=== PATIENT | female | born 1985 | race Caucasian/White ===

== ENCOUNTER 2016-12-22 08:19 | Outpatient (CLI) | payer MEDICAID ==
[~2016-12-22] VITALS: Ht 160 cm; Wt 77.3 kg
[2016-12-22 08:23] VITALS: Ht 160 cm; Wt 77.3 kg
[2016-12-22] MEDS ORDERED: FOLI-49 PO (08:26)
[2016-12-22] MEDS ORDERED: PRENAT PO (08:26)
[2016-12-22] MEDS ORDERED: FERR325C PO (08:26)
--- NOTE | 2016-12-22 09:24 | RADRPT ---
PROCEDURE: OB ultrasound for biophysical profile CLINICAL INDICATION: Vaginal bleeding TECHNIQUE: Multiple sonographic images of the pelvis were obtained. Transabdominal views of the g ravid uterus are available for review. The images were reviewed on a PACS workstation. COMPARISON: None FINDINGS: breathing movement = 2/2 tone = 2/2 motion = 2/2 MINI = 2/2 MINI = 12.1 cm Single live intrauterine with cardiac activity of 136 bpm. position is cephal ic. The placenta is anterior. IMPRESSION: 1. Single live intrauterine gestation. 2. Biophysical profile = 8/8. 3. MINI = 12.1 cm. RPTAT: HH .Asha Melgoza MD, MD Date Time Electronically viewed and signed by .Asha Melgoza MD, on 12/22/2016 09:24 .G/
[2016-12-22 09:54] LABS: ADD UMIC YES; UR AMORPHOUS CRYSTAL FEW /HPF (NONE SEEN); UR ASCORBIC ACID NEGATIVE (NEGATIVE); UR BACTERIA FEW /HPF (NONE SEEN); UR BILIRUBIN (Dip) NEGATIVE (NEGATIVE); UR BLOOD (Dip) 2+ mg/dL (NEGATIVE); UR CLARITY CLOUDY (CLEAR); UR COLOR YELLOW (YELLOW); UR GLUCOSE (Dip) NEGATIVE (NEGATIVE); UR KETONES (Dip) NEGATIVE (NEGATIVE); UR LEUKOCYTE ESTERASE (Dip) NEGATIVE Leu/ul (NEGATIVE); UR MUCUS MODERATE /HPF (NONE SEEN); UR NITRITE (Dip) NEGATIVE (NEGATIVE); UR RBC 0 /HPF (0-5); UR SQUAMOUS EPITHELIAL CELL MODERATE /HPF (FEW); UR TOTAL PROTEIN (Dip) 1+ mg/dl (NEGATIVE); UR UROBILINOGEN (Dip) NEGATIVE (NEGATIVE)
--- NOTE | 2016-12-22 10:37 | PN ---
Triage Information Date/Time Reason for visit: Uterine contractions Weeks of Gestation 38+ /Para 2/1 Diabetes: none Hypertention: none Objective Heart Rate: 140's Contractions: None Results/Medications Results 24 hrs Laboratory Tests Test 12/22/16 09:15 Urine Color YELLOW Urine Clarity CLOUDY A Urine pH 6.0 Urine Specific [place] 1.020 Urine Ketones NEGATIVE Urine Nitrite NEGATIVE Urine Bilirubin NEGATIVE Urine Urobilinogen NEGATIVE Urine Leukocyte Esterase NEGATIVE Urine Microscopic RBC 0 Urine Microscopic WBC 6 H Urine Squamous Epithelial Cells MODERATE Urine Amorphous Crystals FEW A Urine Bacteria FEW A Urine Mucus MODERATE Urine Hemoglobin 2+ H Urine Glucose NEGATIVE Urine Total Protein 1+ H Disposition: Discharge Assessment/Plan BPP 11/14 Had no spotting earlier last night No VB +FM NO ctxs NO LOF CX L/C/P Patient is strongly recommended to return to the Hospital if she has any LOF any DOF any CTXs or baby is not moving like before TERRENCE MCCORMACK M.D. Dec 22, 2016 10:37
--- NOTE | 2016-12-22 15:13 | TRIAGE ---
OB Triage Datetime Report Generated by CPN: 12/22/2016 15:13 Datetime: 12/22/2016 08:50 Labor Evaluation Frequency: x2 contraction noted in last 30 minutes Monitor Mode: External Duration (sec)2399: 100-120 Quality: Moderate Pattern: Normal: <= 5 Contractions in 10 Minutes Resting Tone [place]: Relaxed Heart Rate FHR Baseline Rate: 150 Monitor Mode: External US FHR Baseline Changes: No Baseline Change Variability: Moderate 6-25 bpm Accelerations: 15X15 Decelerations: None Category: Category I Pain Assessment Pain Presence: None/Denies Datetime: 12/22/2016 08:22 Time of Arrival: 12/22/2016 08:10 EGA: 38.1 Arrived By: Wheelchair Arrived From: Emergency Dept Chief Complaint: Spotting Movement: Present Contractions: Denies/Absent Rupture of Membranes: Denies Vaginal Bleeding: Normal Show Vaginal Discharge: Present Recent Sexual Intercouse: Denies Abdominal Trauma: Not Applicable Patient Complaints: Other Time Provider Notified: 12/22/2016 09:00 Provider Notified: Jimmy Initial Plan: NST, Type _ Screen, BPP/MINI, VE Datetime: 12/22/2016 08:21 Stage of : OB Triage
--- NOTE | 2016-12-22 15:15 | TRIAGE ---
OB Triage Datetime Report Generated by CPN: 12/22/2016 15:14 Datetime: 12/22/2016 08:45 Assessment Type: Triage Level of Consciousness: Fully Conscious DTR's/Clonus: DTRs 2+; No Clonus Headache: Denies Blurred Vision: No Respiratory Effort: Unlabored; Regular Rhythm; Equal Expansion Breath Sounds, Left: Clear and Equal Breath Sounds, Right: Clear and Equal Nausea/Vomiting: Denies RUQ Epigastric Pain: Denies Lower Extremities Edema: None Degree: None Upper Extremities Edema: None Degree: None Facial Edema: None History of Falling: (0) No Secondary Diagnosis: (0) No Ambulatory Aid: (0) Bedrest/Nurse Assist IV Therapy: (0) No Gait: (0) Normal/Bedrest/Immobile Mental Status: (0) Oriented to Own Ability Fall Score: 0 Fall Risk Score Definition: No Risk: No action required Datetime: 12/22/2016 08:22 EGA: 38.1
== END 2016-12-22 10:50 | disposition home or self-care (01) ==
LOC: OBT 08:19 → L-D 08:19 → OBT 10:50
PROVIDERS: ATTEND Obstetrics & Gynecology
DX: O62.9 Abnormality of forces of labor, unspecified (principal); Z3A.38 38 weeks gestation of pregnancy
CPT/HCPCS: 36415; 76818; 81001; 86850; 86900; 86901; Z7500; G0463

== ENCOUNTER 2016-12-23 09:19 | Inpatient (IN) | payer MEDICAID ==
[~2016-12-23] VITALS: Ht 160 cm; Wt 77.6 kg
[~2016-12-23 09:19] MED LIST: FERR325C PO; FOLI-49 PO; PRENAT PO
[2016-12-23 09:37] VITALS: Ht 160 cm; Wt 77.6 kg
[2016-12-23 09:39] VITALS: BP 108/68; PULSE 90; RESP 20
--- NOTE | 2016-12-23 11:34 | TRIAGE ---
OB Triage Datetime Report Generated by CPN: 12/23/2016 11:34 Datetime: 12/23/2016 11:16 Time of Arrival: 12/23/2016 09:20 EGA: 38.2 Arrived By: Ambulatory Arrived From: Home Chief Complaint: UCS Movement: Present Contractions: Irregular Time Contractions Began: 12/23/2016 05:00 Contractions: 10-17 Patient Complaints: Contractions Time Provider Notified: 12/23/2016 11:16 Provider Notified: DR VENTURA Initial Plan: EFM,CALL DR Datetime: 12/23/2016 09:33 Level of Consciousness: Fully Conscious DTR's/Clonus: DTRs 2+ Headache: Denies Blurred Vision: No Nausea/Vomiting: Denies RUQ Epigastric Pain: Denies Facial Edema: None Frequency: 5-7 Monitor Mode: External Duration (sec)2399: 60 Quality: Moderate Pattern: Normal: <= 5 Contractions in 10 Minutes Resting Tone [place]: Relaxed FHR Baseline Rate: 150 Monitor Mode: External US FHR Baseline Changes: No Baseline Change Variability: Moderate 6-25 bpm Accelerations: 15X15 Decelerations: None Category: Category I Pain Scale: 8 Pain Presence: Intermittent Pain Type: Contraction Pain Location: Abdomen Pain Goal: 1 Dilatation (cms): 0.5 Effacement (%): 50 Membrane Status: Intact Vaginal Bleeding: None Cervix, Consistency: Firm Cervix, Position: Midposition Datetime: 12/22/2016 09:50 Frequency: OCC Monitor Mode: External Quality: Moderate Pattern: Normal: <= 5 Contractions in 10 Minutes Resting Tone [place]: Relaxed FHR Baseline Rate: 135 Monitor Mode: External US FHR Baseline Changes: No Baseline Change Variability: Moderate 6-25 bpm Accelerations: 15X15 Decelerations: None Category: Category I Pain Presence: None/Denies
[2016-12-23 12:28] LABS: BASOPHILS % 0.2 % (0.0-2.0); EOSINOPHILS # 0.1 10^3/ul (0.0-0.5); HEMATOCRIT 39.1 % (37.0-47.0); HEMOGLOBIN 12.8 g/dl (12.0-16.0); LYMPHOCYTES # 1.2 10^3/ul (0.8-2.9); LYMPHOCYTES % 23.6 % (15.0-51.0); MEAN CORPUSCULAR HEMOGLOBIN 26.8 pg (29.0-33.0); MEAN CORPUSCULAR HGB CONC 32.7 g/dl (32.0-37.0); MEAN CORPUSCULAR VOLUME 81.8 fl (82.0-101.0); MEAN PLATELET VOLUME 11.5 fl (7.4-10.4); MONOCYTE # 0.5 10^3/ul (0.3-0.9); MONOCYTES % 8.6 % (0.0-11.0); NEUTROPHIL # 3.4 10^3/ul (1.6-7.5); NEUTROPHILS % 65.8 % (39.0-77.0); PLATELET COUNT 193 10^3/UL (140-415); RED BLOOD COUNT 4.78 10^6/ul (4.20-5.40); RED CELL DISTRIBUTION WIDTH 14.6 % (11.5-14.5); WHITE BLOOD COUNT 5.2 10^3/ul (4.8-10.8)
[2016-12-23] MEDS: LACTATED RINGER'S 1,000 ML IV SCH ×3 (12:29→15:15)
[2016-12-23] MEDS ORDERED: OXYTOCIN 30 UNITS/LR 500 ML IV PRN ×2 (12:30→19:30)
[2016-12-23] MEDS ORDERED: CEFAZOLIN 2 GM/50 ML (PMX) 50 ML IV SCH (12:30)
[2016-12-23] MEDS ORDERED: MISOPROSTOL 200 MCG TAB PR PRN ×2 (12:30→19:30)
[2016-12-23] MEDS ORDERED: CARBOPROST 250 MCG INJ IM PRN ×2 (12:30→19:30)
[2016-12-23] MEDS ORDERED: METHYLERGONOVINE 0.2 MG INJ IM PRN ×2 (12:30→19:30)
[2016-12-23] MEDS ORDERED: OXYTOCIN 30 UNITS/LR 500 ML IV SCH (12:30)
[2016-12-23 12:47] LABS: INR 0.94; PARTIAL THROMBOPLASTIN TIME 26.9 Sec (25.0-35.0); PROTIME 12.6 Sec (12.2-14.2)
[2016-12-23] MEDS ORDERED: morphine SULFATE/PF (10 MG/10 ML) INJ ONE (15:52)
[2016-12-23] MEDS ORDERED: FENTAnyl 50 MCG/ML VIAL ONE (15:52)
[2016-12-23] MEDS ORDERED: PHENYLephrine (100 MCG/ML) 5ML SYG ONE (16:03)
[2016-12-23] MEDS ORDERED: DEXAMETHASONE 4 MG/ML 1 ML INJ ONE (16:06)
[2016-12-23] MEDS ORDERED: OXYTOCIN 30 UNITS/LR 500 ML IV ONE (16:06)
[2016-12-23] MEDS ORDERED: ONDANSETRON 4 MG INJ ONE (16:38)
[2016-12-23] MEDS ORDERED: HYDROmorphONE 1 MG/ML SYG IV PRN ×2 (18:00)
[2016-12-23] MEDS ORDERED: ONDANSETRON 4 MG INJ IV PRN ×2 (18:00→19:30)
[2016-12-23] MEDS ORDERED: NALOXONE (0.4 MG/ML) INJ IV PRN (18:00)
[2016-12-23] MEDS ORDERED: DIPHENHYDRAMINE 50 MG INJ IV PRN (18:00)
[2016-12-23] MEDS ORDERED: ZOLPIDEM 5 MG TAB PO PRN (18:00)
--- NOTE | 2016-12-23 19:13 | OPR ---
Operative Report Planned Procedure Free Text/Dictation 2 para 1 at 38 weeks and 2 days of gestation who presents in active labor Patient with prior history of 1 Procedure date Dec 23, 2016 Procedure(s) Repeat Performed by see signature line Assisting provider: TERRENCE MCCORMACK M.D. Anesthesiologist: ANIHS DOMÍNGUEZ MD Pre-procedure diagnosis Repeat patient in active labor Anesthesia Type: spinal Procedure Description Under satisfactory [spinal] anesthesia, the patient was prepped and draped and placed in a supine position, tilted to the left. Pfannenstiel incision was made , carried through the subcutaneous tissue. Bleeders brought under control with electrocautery. Fascia incised to the length of the incision. Rectus muscles from the fascia, divided midline. Peritoneum exposed, entered through a transverse incision. Exploration of abdomen revealed gravid uterus. Bladder flap was developed. Transverse incision was made in the lower segment of the uterus. Amniotic sac ruptured. [Clear] amniotic fluid noted. Nasal oropharyngeal suction was performed. The baby was handed to the team for immediate attention. The placenta was delivered manually intact. Uterine cavity was cleaned with wet sponge and drainage established. Uterus closed in 2 layers using [1 Vicryl suture] in running locked and second layer imbricating fashion. Peritoneal cavity irrigated with warm saline. Sponge, needle and instrument count reported to be correct. Abdominal peritoneum closed with [2-0 Vicryl] continuously. Rectus muscle approximated with [2-0 Vicryl]. Fascia closed with [0 Vicryl], and skin closed with End-sorb molly. Estimated blood loss [500]mL. Urine bag contained [800]mL of urine, IV fluids 2000 mL Post-Procedure Post-procedure diagnosis Repeat for active labor Findings: Live Baby [boy], Apgars [9,9], weight [8 lbs. 10 oz./3925 g] Estimated blood loss: other (500) Grafts/Implants: no Complication(s): no Pt Condition post procedure: stable Disposition: PACU Physician Certification I, the undersigned physician, hereby certify that I have discussed the procedure described in this consent form with this patient (or the patient's legal financial services representative), including: * The risk and benefits of the procedure; * Any adverse reactions that may reasonably be expected to occur; * Any alternative efficacious methods of treatment which may be medically viable ; * The potential problems that may occur during recuperation; * Potential for blood transfusion and associated risks/benefits; and * Any research or economic interest I may have regarding this treatment. I further certify that the patient/legally responsible person was encouraged to ask question and that all questions were answered. Copies To: CC: MONICA RUBIO MD, BAHAREH MD Dec 23, 2016 19:13
--- NOTE | 2016-12-23 19:22 | DELSUM ---
Delivery Summary A-C Datetime Report Generated by CPN: 12/23/2016 19:22 DELIVERY PERSONNEL Stripe Marker: Orel, Jhoana MATERNAL INFORMATION Delivery Anesthesia: Spinal Medications in Delivery: see anesthesia records Estimated Blood Loss (ml): 500 Placenta Cultured: No Maternal Complications: Other Other Maternal Complications: previous section in labor LABOR SUMMARY EDC: 01/04/2017 00:00 No. Babies in Womb: 1 Attempted: No Labor Anesthesia: None LABOR INFORMATION Reason for Induction: Not Applicable Onset of Labor: 12/23/2016 06:30 Oxytocin: N/A Group B Beta Strep: Negative Antibiotics # of Doses: ancef 2 gm Antibiotics Time of Last Dose: 12/23/2016 16:15 Steroids Given: None Reason Steroids Not Administered: Not Applicable MEMBRANES Membranes Rupture Method: Artificial Rupture of Membranes: 12/23/2016 16:51 Length of Rupture (hr): 0.00 Amniotic Fluid Color: Clear Amniotic Fluid Amount: Moderate Amniotic Fluid Odor: None STAGES OF LABOR Stage 3 hr: 0 Stage 3 min: 1 Total Time in Labor hr: 10 Total Time in Labor min: 22 CSECTION DELIVERY Primary Indication: Repeat Elective Secondary Indication: Other Other Secondary Indication: BTL CSection Urgency: Emergency CSection Incidence: Repeat Labor: Labor Elective: Nonelective CSection Incision: Lower Uterine Transverse Sterilization Procedure: Laura BABY A INFORMATION Infant Delivery Date/Time: 12/23/2016 16:51 Method of Delivery: Born in Route : No : N/A Forceps: N/A Vacuum Extraction: N/A Shoulder Dystocia : N/A SHOULDER DYSTOCIA BABY A Delivery Date/Time: 12/23/2016 16:51 PRESENTATION/POSITION BABY A Presentation: Cephalic Cephalic Presentation: Vertex Vertex Position: Left Occipital Anterior Breech Presentation: N/A PLACENTA INFORMATION BABY A Placenta Delivery Time : 12/23/2016 16:52 Placenta Method of Delivery: Manual Removal Placenta Status: Delivered SCORES BABY A Heart Rate 1 min: >100 bpm Resp Effort 1 min: Good Cry Reflex Irritability 1 min: Cough/Sneeze/Pulls Away Muscle Tone 1 min: Active Motion Color 1 min: Body [place], Extremit Blue Resuscitation Effort 1 min: Tactile Stimulation SCORE 1 MIN: 9 Heart Rate 5 min: >100 bpm Resp Effort 5 min: Good Cry Reflex Irritability 5 min: Cough/Sneeze/Pulls Away Muscle Tone 5 min: Active Motion Color 5 min: Body [place], Extremit Blue Resuscitation Effort 5 min: Tactile Stimulation SCORE 5 MIN: 9 INFORMATION BABY A Gestational Age at Delivery: 38.2 Gestational Status: Early Term- 37- 38.6 Weeks Outcome : Liveborn Infant Condition : Stable Sex: Male IDENTIFICATION/MEDS BABY A ID Band Number: [id number] ID Band Location: Right Leg; Left Arm Sensor Applied: Yes Sensor Number: [id number] Sensor Location : Cord Clamp Vitamin K Given : Not Given Erythromycin Given: Not Given WEIGHT/LENGTH BABY A Birthweight (gm): 3925 Infant Weight (lb): 8 Weight (oz): 10 Infant Length (in): 20.00 Length (cm): 50.80 CORD INFORMATION BABY A No. Cord Vessels: 3 Nuchal Cord : N/A Cord Blood Taken: Yes Suction: Mouth; Nose ASSESSMENT BABY A Infant Complications: None Physical Findings at Delivery: Within Normal Limits Infant Respirations: Appears Normal Public Speaking Instructor/ALS Called : No Infant Care By: DONTE Pretty Transferred To: Nursery
[2016-12-23] MEDS ORDERED: SENNA/DOCUSATE NA (8.6MG/50MG) TAB PO PRN (19:30)
[2016-12-23] MEDS ORDERED: BISACODYL 10 MG SUPP PR PRN (19:30)
[2016-12-23] MEDS ORDERED: MAGNESIUM HYDROXIDE 30ML CUP PO PRN (19:30)
[2016-12-23] MEDS ORDERED: CEFAZOLIN 2 GM/50 ML (PMX) 50 ML IVPB ONE (19:30)
[2016-12-23] MEDS ORDERED: ACETAMINOPHEN 325 MG TAB PO PRN (19:30)
[2016-12-23] MEDS ORDERED: OXYCODONE/ACETAMINOPHEN (5/325) TAB PO PRN ×2 (19:30)
[2016-12-23] MEDS: KETOROLAC 30 MG INJ IV PRN (20:05)
[2016-12-23 21:00] VITALS: BP 112/58; PULSE 70; RESP 18
[2016-12-23] MEDS: OXYTOCIN 30 UNITS/LR 500 ML IV SCH (23:16)
[2016-12-23] MEDS: LANOLIN 7 GM TUBE TOP PRN (23:16)
[2016-12-24] VITALS: BP 127/70; PULSE 63; RESP 18
[2016-12-24] MEDS: CEFAZOLIN 1 GM/50 ML (PMX) 50 ML IVPB SCH ×3 (01:57→18:25)
[2016-12-24 04:00] VITALS: BP 108/56; PULSE 66; RESP 18
[2016-12-24] MEDS: LACTATED RINGER'S 1,000 ML IV SCH ×6 (04:49→20:17)
[2016-12-24 08:15] VITALS: BP 90/53; PULSE 73; RESP 20
[2016-12-24 09:33] LABS: BASOPHILS % 0.1 % (0.0-2.0); EOSINOPHILS % 0.1 % (0.0-7.0); HEMATOCRIT 36.8 % (37.0-47.0); HEMOGLOBIN 11.6 g/dl (12.0-16.0); LYMPHOCYTES # 1.9 10^3/ul (0.8-2.9); LYMPHOCYTES % 22.2 % (15.0-51.0); MEAN CORPUSCULAR HEMOGLOBIN 26.3 pg (29.0-33.0); MEAN CORPUSCULAR HGB CONC 31.5 g/dl (32.0-37.0); MEAN CORPUSCULAR VOLUME 83.4 fl (82.0-101.0); MEAN PLATELET VOLUME 11.6 fl (7.4-10.4); MONOCYTE # 0.8 10^3/ul (0.3-0.9); MONOCYTES % 9.4 % (0.0-11.0); NEUTROPHIL # 5.7 10^3/ul (1.6-7.5); NEUTROPHILS % 67.6 % (39.0-77.0); PLATELET COUNT 184 10^3/UL (140-415); RED BLOOD COUNT 4.41 10^6/ul (4.20-5.40); RED CELL DISTRIBUTION WIDTH 14.8 % (11.5-14.5); WHITE BLOOD COUNT 8.4 10^3/ul (4.8-10.8)
[2016-12-24] MEDS: LANOLIN 7 GM TUBE TOP PRN (09:48)
[2016-12-24] MEDS: OXYTOCIN 30 UNITS/LR 500 ML IV SCH (09:54)
[2016-12-24 09:56] LABS: ALBUMIN 2.6 g/dl (3.3-4.9); ALBUMIN/GLOBULIN RATIO 0.86; BILIRUBIN,INDIRECT 0.3 mg/dl (0-1.1); BILIRUBIN,TOTAL 0.3 mg/dl (0.2-1.3); CREATININE 0.51 mg/dl (0.44-1.00); POTASSIUM 3.9 mmol/L (3.5-5.1); TOTAL PROTEIN 5.6 g/dl (6.1-8.1)
[2016-12-24 11:48] VITALS: BP 97/55; PULSE 74; RESP 19
[2016-12-24] MEDS: KETOROLAC 30 MG INJ IV PRN (15:21)
[2016-12-24 15:30] VITALS: BP 111/70; PULSE 75; RESP 17
--- NOTE | 2016-12-24 18:44 | QN ---
Documentation Comment No complaint Afebrile VSS Abdomen soft ND POD #1 Stable Ambulate Advance diet. ZAFAR DUVALL MD Dec 24, 2016 18:44
[2016-12-24 20:00] VITALS: BP 112/62; PULSE 78; RESP 18
[2016-12-25 04:00] VITALS: BP 133/81; PULSE 86; RESP 18
[2016-12-25 08:40] VITALS: BP 117/70; PULSE 82; RESP 18
[2016-12-25] MEDS: IBUPROFEN 600 MG TAB PO PRN ×2 (08:40→17:47)
--- NOTE | 2016-12-25 15:43 | QN ---
Documentation Comment pod2 pt doing well vss exam wnl a/p pod 2 continue care NASIR LAGOS MD Dec 25, 2016 15:43
[2016-12-25 16:32] VITALS: BP 108/72; PULSE 82
[2016-12-25 19:55] VITALS: BP 110/72; PULSE 80; RESP 19
[2016-12-26] MEDS: IBUPROFEN 600 MG TAB PO PRN ×2 (01:58→08:58)
[2016-12-26 03:50] VITALS: BP 121/73; PULSE 72; RESP 19
[2016-12-26 08:20] VITALS: BP 133/81; PULSE 62; RESP 17
--- NOTE | 2016-12-26 11:59 | HP ---
Date/Time of Note Date/Time of Note DATE: 12/26/16 TIME: 11:50 OB - History Hx of Present Free Text/Dictation at 38+ 2 wks ga who presented in active labor patient with prior hx of c/section x one : 2 Para: 1 Care: None Obstetrical Complications: None Medical Complications: None Past Family/Social History * Past Medical, Surgical, Family and Obstetric Histories reviewed from chart. OB Admission Exam Vital Signs Vital Signs Vital Signs Date Time Temp Pulse Resp B/P Pulse Ox O2 Delivery O2 Flow Rate FiO2 12/26/16 08:20 98.5 62 17 133/81 Room Air 12/25/16 08:40 98 12/24/16 15:50 21 Physical Exam HEENT: WNL Heart: Rhythm Normal Lungs: Clear, Equal Abdomen: WNL Extremities: Normal Reflexes: Normal Heart Rate: 140's Accelerations: Accelerations Present Decelerations: No Decelerations Varibility: Moderate Contractions on Admission: 6-10 Minutes Apart Last 72 hours Lab Results CBC & BMP 12/23/16 12:13 12/24/16 09:00 Liver Function Test 12/24/16 09:00 Alanine Aminotransferase (ALT/SGPT) 27 Albumin 2.6 L Alkaline Phosphatase 171 H Aspartate Amino Transf (AST/SGOT) 28 Direct Bilirubin 0.00 Total Protein 5.6 L OB Assessment/Plan Plan: Section Other plan: Plan for Repeat c/section and BTL Patient had previously been counseled and consented for BTL patient understood that tubal sterilization is permanent and not reversible she also understood the possible risks of failure or ectopic in the future. All risks including but not limited to infection, bleeding and trauma to other organs were discussed with the patient All her questions were answered and she understood and agreed to proceed with the planned surgery. AMRIT VENTURA MD Dec 26, 2016 11:59
--- NOTE | 2016-12-26 14:06 | DS ---
Date/Time of Note Date/Time of Note DATE: 12/26/16 TIME: 14:05 Obstetrical Discharge Record Final Diagnosis Final Diagnosis: Term delivered Section Section: Repeat Condition on Discharge Physical Assessment Voiding: Yes Bowel Movement: Yes Breast: Soft, non-tender, Filling Fundus: Firm Abdomen and Incision: Incision intact Calf Tenderness: No Patient Condition: Stable ZAFAR DUVALL MD Dec 26, 2016 14:06
== END 2016-12-26 18:39 | disposition home or self-care (01) | DRG 766 ==
LOC: OBT 09:19 → L-D 09:20 → OBT 11:30 → L-D 15:59 → PP1 20:56
PROVIDERS: ADMIT Obstetrics & Gynecology; ATTEND Obstetrics & Gynecology
PROC: 0UB70ZZ Excision of Bilateral Fallopian Tubes, Open Approach (ICD-10-PCS; 2016-12-23)
PROC: 10D00Z1 Extraction of Products of Conception, Low, Open Approach (ICD-10-PCS; principal; 2016-12-23 16:00)
DX: O34.211 Maternal care for low transverse scar from previous cesarean delivery (principal); N85.8 Other specified noninflammatory disorders of uterus; Z37.0 Single live birth; Z3A.38 38 weeks gestation of pregnancy
CPT/HCPCS: 80053; 85025; 85610; 85730; 86592; 87340; 88302; 94760; 99464; G0463; J0690; J1100; J1885; J2274; J2370; J2405; J2590; J3010; J7120